=== PATIENT | female | born 1970 | race Caucasian/White ===

== ENCOUNTER 2017-04-14 10:04 | Emergency (ER) | payer MEDICAID ==
[~2017-04-14] VITALS: Ht 157.5 cm; Wt 80.4 kg
[~2017-04-14 10:04] MED LIST: ALPR2TAB1 PO; FERR-13 PO; FOLI5CAP PO; GABA300C PO; OMEP20TC10 PO; VENL75TA17 PO
[2017-04-14 10:10] VITALS: BP 126/69
--- NOTE | 2017-04-14 10:22 | NUR ---
Patient ambulated to bed 3 after providing a urine specimen. RN evaluating patient at bedside.
--- NOTE | 2017-04-14 10:30 | NUR ---
Dr. Harris evaluating patient at bedside.
[2017-04-14] MEDS ORDERED: NACL 0.9% 1,000 ML IV SCH (10:39)
[2017-04-14] MEDS ORDERED: PROMETHAZINE 25 MG/ML VIAL IM ONE (10:40)
[2017-04-14] MEDS ORDERED: KETOROLAC 30 MG/ML VIAL IVP ONE (10:40)
[2017-04-14] MEDS ORDERED: ONDANSETRON 4 MG/2 ML VIAL IVP ONE (10:40)
[2017-04-14 11:12] LABS: BASOPHILS # (AUTO) 0.3 K/uL (0.00-0.22); BASOPHILS % (AUTO) 4.1 % (0.0-2.0); EOSINOPHILS # (AUTO) 0.1 K/uL (0-0.4); EOSINOPHILS % (AUTO) 1.1 % (0.0-4.0); HEMATOCRIT 42.8 % (36-48); HEMOGLOBIN 14.4 g/dL (12.0-16.0); LYMPHOCYTES # (AUTO) 2.6 K/uL (2.5-16.5); LYMPHOCYTES % (AUTO) 35.3 % (20.5-51.1); MEAN CORPUSCULAR HEMOGLOBIN 33 pg (27-31); MEAN CORPUSCULAR HGB CONC 34 g/dL (33-37); MEAN CORPUSCULAR VOLUME 97 fL (80-94); MONOCYTES # (AUTO) 0.6 K/uL (0.8-1.0); MONOCYTES % (AUTO) 8.4 % (1.7-9.3); NEUTROPHILS # (AUTO) 3.7 K/uL (1.8-7.7); NEUTROPHILS % (AUTO) 51.1 % (42.2-75.2); PLATELET COUNT (AUTO) 299 K/uL (140-450); RED BLOOD CELL COUNT(AUTO) 4.39 MIL/uL (4.20-5.40); RED CELL DISTRIBUTION WIDTH 11.9 % (11.6-13.7); WHITE BLOOD COUNT (AUTO) 7.3 K/uL (4.8-10.8)
--- NOTE | 2017-04-14 11:20 | NUR ---
PT TO CT VIA [facility]
--- NOTE | 2017-04-14 11:20 | NUR ---
Patient taken to CT scan via gurney by Sticky.
[2017-04-14 11:33] LABS: BILIRUBIN,URINE 1+ (NEGATIVE); BLOOD, URINE NEGATIVE (NEGATIVE); COLOR,URINE YELLOW (YELLOW); LEUKOCYTE ESTERASE ,URINE NEGATIVE (NEGATIVE); NITRITE, URINE NEGATIVE (NEGATIVE); UGLUCOSE NEGATIVE (NEGATIVE)
[2017-04-14 11:35] LABS: APPEARANCE,URINE SLIGHTLY HAZY (CLEAR)
[2017-04-14 11:37] LABS: CARBON DIOXIDE 26.6 mmol/L (21-32); POTASSIUM 3.6 mmol/L (3.5-5.1)
[2017-04-14 11:38] LABS: TOTAL BILIRUBIN 0.4 mg/dL (0.0-1.0)
[2017-04-14 11:39] LABS: ALBUMIN 3.8 g/dL (3.4-5.0)
--- NOTE | 2017-04-14 11:40 | NUR ---
Patient returned from CT scan. RN re-evaluating patient at bedside.
--- NOTE | 2017-04-14 11:40 | NUR ---
RETURNED FROM CT---RESTING WITH OU CLOSED NO S/S RESP DISTRESS NOTED---NO GRIMACE NO MOAN
[2017-04-14 11:47] LABS: RBC,URINE NONE SEEN /HPF (0-5); WBC,URINE 0-5 (RARE) /HPF (0-5)
--- NOTE | 2017-04-14 11:52 | NUR ---
DENIES PAIN AT THIS TIME
--- NOTE | 2017-04-14 13:13 | NUR ---
Dr. Harris re-evaluating patient at bedside.
[2017-04-14 13:14] VITALS: BP 102/61
== END 2017-04-14 13:14 | disposition home or self-care (01) ==
LOC: MED 10:04
DX: F41.0 Panic disorder [episodic paroxysmal anxiety] (principal); E11.9 Type 2 diabetes mellitus without complications; I10 Essential (primary) hypertension; Z79.899 Other long term (current) drug therapy; Z88.1 Allergy status to other antibiotic agents
CPT/HCPCS: 36415; 70450; 74176; 80053; 81001; 82150; 83690; 84703; 85025; 96361; 96372; 96374; 96375; 99285; J1885; J2405; J2550; J7030

== ENCOUNTER 2017-06-08 09:12 | Emergency (ER) | payer MEDICAID ==
[~2017-06-08] VITALS: Ht 162.6 cm; Wt 80.7 kg
[2017-06-08 09:15] VITALS: BP 122/57
--- NOTE | 2017-06-08 09:22 | NUR ---
PT AMBULATED TO BED 10
--- NOTE | 2017-06-08 09:39 | NUR ---
PATIENT PRESENTS TO ED WITH palpitations/nausea/dizziness/generalized pain . PT STATES . DENIES /V/D; SKIN IS PINK/WARM/DRY; AAOX4 WITH EVEN AND STEADY GAIT; LUNGS CLEAR BL; HR EVEN AND REGULAR; PT DENIES ANY FEVER, , OR COUGH AT THIS TIME; PATIENT STATES PAIN OF 10/10 AT THIS TIME; VSS; PATIENT POSITIONED FOR COMFORT; HOB ELEVATED; BEDRAILS UP X2; BED DOWN. ER MD MADE AWARE OF PT STATUS.
[2017-06-08] MEDS ORDERED: KETOROLAC 60 MG/2 ML VIAL IM ONE (09:50)
[2017-06-08 10:06] VITALS: BP 112/71
== END 2017-06-08 10:06 | disposition home or self-care (01) ==
LOC: MED 09:12
DX: R00.2 Palpitations (principal); M79.1 Myalgia; R42 Dizziness and giddiness; K21.9 Gastro-esophageal reflux disease without esophagitis; I10 Essential (primary) hypertension; F31.9 Bipolar disorder, unspecified; Z88.8 Allergy status to other drugs, medicaments and biological substances
CPT/HCPCS: 81002; 81025; 93005; 96372; 99283; J1885

== ENCOUNTER 2018-04-13 19:38 | Emergency (ER) | payer MEDICAID ==
[~2018-04-13] VITALS: Ht 160 cm; Wt 77.1 kg
[2018-04-13 19:42] VITALS: BP 119/74
--- NOTE | 2018-04-13 19:46 | NUR ---
VISION ACUITY BOTH EYE 20/40, RT EYE 20/100, LEFT EYE 20/ 50
--- NOTE | 2018-04-13 19:50 | NUR ---
TO LOBBY AMBULATORY ,VSS, A/W BED, ERIK NOTED
--- NOTE | 2018-04-13 20:06 | NUR ---
PT AMBULATED TO BED 4
--- NOTE | 2018-04-13 20:10 | NUR ---
47/F CAME IN WITH FAMILY, C/O 10/10 PRESSURE-LIKE OR "PULLING" R EYE PAIN SINCE THE AM. PT REPORTED TAKING TYLENOL AND COVERING EYE WITH NO RELIEF. PT AOX4, GCS 15, PERRLA. PT ANXIOUS, KEEPING EYES CLOSED, RR EVEN AND UNLABORED. LUNG SOUNDS CLEAR BL. BS ACTIVE X4, ABD SOFT ROUND NONTENDER. HX LUPUS, FIBROMYALGIA, HTN, SCIATICA, NEOPLASM
[2018-04-13] MEDS ORDERED: FLUORESCEIN OPTH STRIP 0.6 MG OP ONE (21:00)
[2018-04-13] MEDS ORDERED: TETRACAINE HCL/PF 0.5% OPTH 4 ML BTL OP ONE (21:00)
[2018-04-13] MEDS ORDERED: MORPHINE SULFATE 4 MG/ML SYR IM ONE (21:40)
[2018-04-13] MEDS ORDERED: KETOROLAC 30 MG/ML VIAL IM ONE (22:10)
[2018-04-13 22:57] VITALS: BP 138/87
--- NOTE | 2018-04-13 22:57 | NUR ---
Patient discharged with v/s stable. Written and verbal after care instructions given and explained. Patient alert, oriented and verbalized understanding of instructions. Ambulatory with steady gait. All questions addressed prior to discharge. ID band removed. Patient advised to follow up with PMD. Rx of TOBRAMYCIN, NAPROSYN, NORCO given. Patient educated on indication of medication including possible reaction and side effects. Opportunity to ask questions provided and answered.
== END 2018-04-13 22:57 | disposition home or self-care (01) ==
LOC: MED 19:38
DX: H57.11 Ocular pain, right eye (principal); K21.9 Gastro-esophageal reflux disease without esophagitis; I10 Essential (primary) hypertension; Z88.1 Allergy status to other antibiotic agents; Z79.899 Other long term (current) drug therapy
CPT/HCPCS: 96372; 99283; J1885; J2270

== ENCOUNTER 2018-04-16 12:22 | Emergency (ER) | payer MEDICAID ==
[~2018-04-16] VITALS: Ht 157.5 cm; Wt 74.0 kg
[2018-04-16 13:00] VITALS: BP 131/67
[2018-04-16] MEDS ORDERED: TETRACAINE HCL/PF 0.5% OPTH 4 ML BTL ONE (14:00)
[2018-04-16] MEDS ORDERED: acetaZOLAMIDE 250 MG TAB PO ONE (14:00)
[2018-04-16] MEDS: TIMOLOL OP 0.5% 5 ML BTL OP ONE (14:40)
[2018-04-16] MEDS: acetaZOLAMIDE 250 MG TAB PO SCH (14:41)
[2018-04-16] MEDS: DEXAMETHASONE 4 MG/ML VIAL IVP ONE (14:46)
[2018-04-16] MEDS: MORPHINE SULFATE 4 MG/ML SYR IVP ONE (14:51)
[2018-04-16 15:06] LABS: BASOPHILS % (AUTO) 0.1 % (0.0-2.0); EOSINOPHILS # (AUTO) 0.2 K/uL (0-0.4); EOSINOPHILS % (AUTO) 2.6 % (0.0-4.0); HEMATOCRIT 42.3 % (36-48); HEMOGLOBIN 14.2 g/dL (12.0-16.0); LYMPHOCYTES # (AUTO) 2.3 K/uL (2.5-16.5); LYMPHOCYTES % (AUTO) 24.7 % (20.5-51.1); MEAN CORPUSCULAR HEMOGLOBIN 31 pg (27-31); MEAN CORPUSCULAR HGB CONC 34 g/dL (33-37); MEAN CORPUSCULAR VOLUME 93.6 fL (80-94); MONOCYTES # (AUTO) 0.6 K/uL (0.8-1.0); MONOCYTES % (AUTO) 6.9 % (1.7-9.3); NEUTROPHILS % (AUTO) 65.7 % (42.2-75.2); PLATELET COUNT (AUTO) 432 K/uL (140-450); RED BLOOD CELL COUNT(AUTO) 4.52 MIL/uL (4.20-5.40); RED CELL DISTRIBUTION WIDTH 13.3 % (11.6-13.7); WHITE BLOOD COUNT (AUTO) 9.1 K/uL (4.8-10.8)
[2018-04-16 15:34] LABS: ANION GAP 12.2 (8-16); CARBON DIOXIDE 26.5 mmol/L (21-32); CREATININE 0.8 mg/dL (0.6-1.3); POTASSIUM 3.7 mmol/L (3.5-5.1); TOTAL BILIRUBIN 0.3 mg/dL (0.0-1.0)
[2018-04-16 16:20] LABS: APPEARANCE,URINE CLEAR (CLEAR); BILIRUBIN,URINE NEGATIVE (NEGATIVE); BLOOD, URINE 3+ (NEGATIVE); COLOR,URINE YELLOW (YELLOW); LEUKOCYTE ESTERASE ,URINE TRACE (NEGATIVE); NITRITE, URINE NEGATIVE (NEGATIVE); UGLUCOSE NEGATIVE (NEGATIVE)
[2018-04-16 17:02] VITALS: BP 97/62
[2018-04-16 17:28] LABS: RBC,URINE 3-10 (FEW) /HPF (0-5); WBC,URINE 0-5 (RARE) /HPF (0-5)
== END 2018-04-16 16:58 | disposition short-term general hospital (02) ==
LOC: MED 12:22
DX: H40.211 Acute angle-closure glaucoma, right eye (principal); M32.9 Systemic lupus erythematosus, unspecified; M79.7 Fibromyalgia; M06.9 Rheumatoid arthritis, unspecified; K21.9 Gastro-esophageal reflux disease without esophagitis; I10 Essential (primary) hypertension; Z79.899 Other long term (current) drug therapy
CPT/HCPCS: 36415; 70470; 80053; 81001; 81025; 82150; 83690; 85025; 96374; 96375; 99284; J1100; J2270; Q9967

== ENCOUNTER 2019-01-05 10:42 | Emergency (ER) | payer MEDICAID ==
[~2019-01-05] VITALS: Ht 160 cm; Wt 61.7 kg
[2019-01-05 10:48] VITALS: BP 111/56
--- NOTE | 2019-01-05 11:05 | NUR ---
PATIENT PRESENTS TO ED WITH C/O LOWER BACK PAIN RADIATING TO BILATERAL LOWER LEGS S/P SEEING A CHIROPRACTOR ON 12/24/2018. PT AMBULATED WITH SLOW STEADY GAIT. PMH: SCIATICA, LUPUS, ARTHRITIS, RHEUMATOID ARTHRITIS, FIBROMYALGIA, SYSTEMATIC ANEMIA. PATIENT STATES PAIN OF 10/10 AT THIS TIME; VSS; PATIENT POSITIONED FOR COMFORT; HOB ELEVATED; BEDRAILS UP X2; BED DOWN. ER MD MADE AWARE OF PT STATUS.
--- NOTE | 2019-01-05 11:18 | NUR ---
Patient being evaluated by physician at bedside.
[2019-01-05] MEDS ORDERED: KETOROLAC 30 MG/ML VIAL IM ONE (12:35)
[2019-01-05] MEDS ORDERED: DEXAMETHASONE 4 MG/ML VIAL PO ONE (12:55)
[2019-01-05] MEDS ORDERED: CYCLOBENZAPRINE 10 MG TAB PO ONE (12:55)
--- NOTE | 2019-01-05 13:00 | NUR ---
NO S/S OF DISTRESS, VSS, RESTING IN BED.
--- NOTE | 2019-01-05 14:00 | NUR ---
PT RESTING IN BED, STATED FEELING MUCH BETTER, PAIN 3/10 AT THIS TIME.
--- NOTE | 2019-01-05 14:31 | NUR ---
Patient discharged with v/s stable. Written and verbal after care instructions given and explained. Rx of MEDROL given. Patient educated on indication of medication including possible reaction and side effects. All questions addressed prior to discharge. ID band removed. Patient advised to follow up with PMD.
[2019-01-05 14:32] VITALS: BP 108/56
== END 2019-01-05 14:31 | disposition home or self-care (01) ==
LOC: MED 10:42
DX: M54.41 Lumbago with sciatica, right side (principal); K21.9 Gastro-esophageal reflux disease without esophagitis; I10 Essential (primary) hypertension; Z86.69 Personal history of other diseases of the nervous system and sense organs; Z87.448 Personal history of other diseases of urinary system; Z79.899 Other long term (current) drug therapy; Z88.1 Allergy status to other antibiotic agents
CPT/HCPCS: 81002; 81025; 96372; 99283; J1100; J1885

== ENCOUNTER 2020-07-15 17:54 | Observation (INO) | payer MEDICAID, SELFPAY ==
[~2020-07-15] VITALS: Ht 157.5 cm; Wt 54.4 kg
[2020-07-15 17:56] VITALS: BP 127/31
--- NOTE | 2020-07-15 18:12 | NUR ---
PT TAKEN TO BED 6.
[2020-07-15 18:28] LABS: EOSINOPHILS # (AUTO) 0.2 K/uL (0-0.4); EOSINOPHILS % (AUTO) 2.2 % (0.0-4.0); HEMATOCRIT 23.2 % (36-48); HEMOGLOBIN 7.1 g/dL (12.0-16.0); LYMPHOCYTES # (AUTO) 2.9 K/uL (2.5-16.5); LYMPHOCYTES % (AUTO) 26.6 % (20.5-51.1); MEAN CORPUSCULAR HEMOGLOBIN 21 pg (27-31); MEAN CORPUSCULAR HGB CONC 31 g/dL (33-37); MEAN CORPUSCULAR VOLUME 68.7 fL (80-94); MONOCYTES % (AUTO) 9.1 % (1.7-9.3); NEUTROPHILS # (AUTO) 6.8 K/uL (1.8-7.7); NEUTROPHILS % (AUTO) 62.1 % (42.2-75.2); PLATELET COUNT (AUTO) 480 K/uL (140-450); RED BLOOD CELL COUNT(AUTO) 3.37 MIL/uL (4.20-5.40); WHITE BLOOD COUNT (AUTO) 10.9 K/uL (4.8-10.8)
--- NOTE | 2020-07-15 18:30 | NUR ---
50 YEAR OLD FEMALE STATES THAT SHE IS HERE DUE TO PCP REFERALL FOR LOW HGB OF 6.6 AND NEEDS A BLOOD TRANSFUSION. PT STATES SHE FEELS COLD, FEELS HR FAST. PT DENIES DIZZINESS. PT AOX4, BREATHING EVEN AND UNLABORED, SKIN WARM AND DRY. BED IN LOWEST POSITION, LOCKED, BED RAIL UPX1. PMH - LUPUS, FIBROMYALGIA, RA, PITUITARY TUMOR ALLERGIES - VANCOMYCIN
[2020-07-15 18:37] LABS: ANION GAP 12.9 (8-16); CARBON DIOXIDE 25.9 mmol/L (21-32); CREATININE 0.7 mg/dL (0.6-1.3); POTASSIUM 3.8 mmol/L (3.5-5.1)
[2020-07-15 18:56] LABS: PROTHROMBIN TIME 9.6 secs (10.8-13.4)
--- NOTE | 2020-07-15 19:21 | NUR ---
PT WAS PROVIDED A BLANKET.
--- NOTE | 2020-07-15 19:21 | NUR ---
PT WAS FOUND AWAKE IN SEMI-LICONA'S POSITION IN BED. PT STATES NO DISTRESS AND NO DISCOMFORT. BED LOCKED IN LOWEST POSITION WITH 1 SIDE RAIL UP.
--- NOTE | 2020-07-15 19:21 | NUR ---
RECEIVED TRANSFER OF CARE REPORT FROM PETRONA DOS SANTOS FOR CONTINUATION OF CARE.
--- NOTE | 2020-07-15 19:23 | NUR ---
REPORT GIVEN TO BERNARDO DOS SANTOS, TRANSFER OF CARE AT THIS TIME
--- NOTE | 2020-07-15 19:25 | NUR ---
JB SWAB COLLECCTED AND WALKED TO LAB.
[2020-07-15] MEDS ORDERED: FLUO10CA21 PO (19:46)
[2020-07-15] MEDS ORDERED: TRAZ-343 PO (19:46)
[2020-07-15] MEDS ORDERED: ACETAMINOPHEN 325 MG TAB PO PRN (21:25)
[2020-07-15] MEDS ORDERED: ONDANSETRON 4 MG/2 ML VIAL IVP PRN (21:25)
--- NOTE | 2020-07-15 21:30 | NUR ---
PT FOUND AWAKE IN SEMI-LICONA'S POSITION IN BED. PT STATES NO PAIN. NO DISCOMFORT, AND NO DISTRESS. BED LOCKED IN LOWEST POSITION WITH 1 SIDE RAIL UP.
--- NOTE | 2020-07-15 22:29 | NUR ---
Patient will be admitted to care of DR HOLLEY. Admited to TELEMETRY. Will go to room 106B. Belongings list completed. Report to KEITH DOS SANTOS.
[2020-07-15 22:50] VITALS: BP 141/74
--- NOTE | 2020-07-15 22:52 | NUR ---
PT TRANSFERRED TO ROOM 106B. RECEIVING NURSE KEITH DOS SANTOS AT BEDSIDE.
--- NOTE | 2020-07-15 22:52 | NUR ---
PT ARRIVED FROM ER TO UNIT VIA GURNEY. PT ABLE TO AMBULATE TO BED SAFELY. PT AAOX4, ABLE TO MAKE NEEDS KNOWN. RESPIRATIONS EVEN AND UNLABORED TO ROOM AIR, PT NOT IN DISTRESS. ABDOMEN IS SOFT AND NON-TENDER, ACTIVE BOWEL SOUNDS NOTED. SKIN IS WARM, DRY, AND INTACT. PT WITH IV ACCESS ON LEFT AC G18 PATENT AND INTACT, BLOOD TRANSFUSION ONGOING. PT DENIES ANY PAIN OR DISCOMFORT AT THIS TIME. VITAL SIGNS STABLE. PT WELCOMED AND ORIENTED TO ROOM. MRSA SWAB COLLECTED. PT HOOKED TO TELE MONITORING. POC DISCUSSED, PT VERBALIZED UNDERSTANDING. NO REQUESTS MADE AT THIS TIME. PT KEPT COMFORTABLE. CALL LIGHT WITHIN REACH, WILL CONTINUE TO MONITOR.
[2020-07-15] MEDS: traZODone 50 MG TAB ONE ×2 (23:38→23:58)
[2020-07-15] MEDS ORDERED: IRON SUCROSE COMPLEX 100 MG/5 ML VIAL IVP ONE (23:50)
[2020-07-16] VITALS: BP 125/64
--- NOTE | 2020-07-16 00:10 | NUR ---
1 UNIT PRBC TRANSFUSED. VITAL SIGNS STABLE. NO REACTIONS NOTED. PT DENIES ANY PAIN OR DISCOMFORT AT THIS TIME. WILL CONTINUE TO MONITOR.
--- NOTE | 2020-07-16 01:55 | NUR ---
2ND UNIT OF PRBC STARTED. 2 NURSE VERIFICATION DONE PRIOR. VS STABLE. WILL CONTINUE TO MONITOR.
--- NOTE | 2020-07-16 03:45 | NUR ---
2ND UNIT PRBC TRANSFUSED. VS STABLE. PT DENIES ANY PAIN OR DISCOMFORT. NO REACTIONS NOTED. CBC RESCHEDULED TO 6AM PER PROTOCOL. WILL CONTINUE TO MONITOR.
[2020-07-16 04:00] VITALS: BP 98/68
--- NOTE | 2020-07-16 05:23 | NUR ---
PATIENT ASLEEP. VISIBLE CHEST RISE AND FALL NOTED, NO S/SX OF DISTRESS NOTED. PT KEPT SAFE AND COMFORTABLE. CALL LIGHT WITHIN REACH. WILL CONTINUE TO MONITOR.
[2020-07-16 06:32] LABS: BASOPHILS % (AUTO) 0.1 % (0.0-2.0); EOSINOPHILS # (AUTO) 0.2 K/uL (0-0.4); HEMATOCRIT 27.8 % (36-48); HEMOGLOBIN 8.7 g/dL (12.0-16.0); LYMPHOCYTES # (AUTO) 1.4 K/uL (2.5-16.5); LYMPHOCYTES % (AUTO) 23.5 % (20.5-51.1); MEAN CORPUSCULAR HEMOGLOBIN 23 pg (27-31); MEAN CORPUSCULAR HGB CONC 31 g/dL (33-37); MEAN CORPUSCULAR VOLUME 73.2 fL (80-94); MONOCYTES # (AUTO) 0.7 K/uL (0.8-1.0); MONOCYTES % (AUTO) 10.7 % (1.7-9.3); NEUTROPHILS # (AUTO) 3.8 K/uL (1.8-7.7); NEUTROPHILS % (AUTO) 62.7 % (42.2-75.2); PLATELET COUNT (AUTO) 354 K/uL (140-450); RED BLOOD CELL COUNT(AUTO) 3.79 MIL/uL (4.20-5.40); RED CELL DISTRIBUTION WIDTH 20.9 % (11.6-13.7); WHITE BLOOD COUNT (AUTO) 6.1 K/uL (4.8-10.8)
[2020-07-16 07:05] LABS: ALBUMIN 3.3 g/dL (3.4-5.0); ANION GAP 12.2 (8-16); CARBON DIOXIDE 22.7 mmol/L (21-32); CREATININE 0.6 mg/dL (0.6-1.3); POTASSIUM 3.9 mmol/L (3.5-5.1); TOTAL BILIRUBIN 0.3 mg/dL (0.0-1.0)
--- NOTE | 2020-07-16 07:34 | NUR ---
endorsed to day shift nurse for continuity of care
--- NOTE | 2020-07-16 07:35 | NUR ---
RECEIVED PATIENT FROM NIGHT NURSE. PATIENT IN BED AWAKE AND ALERT. RESP EVEN AND UNLABORED ON ROOM AIR. DENIED OF PAIN AT THIS TIME. LAC 18G SL. SEIZURE PRECAUTION IN PLACE D/T HISTORY. PLAN OF CARE DISCUSSED. PATIENT VERBALIZED UNDERSTANDING. HOB ELEVATED. SAFETY MEASURES IN PLACE. WILL CONTINUE TO MONITOR.
--- NOTE | 2020-07-16 07:49 | NUR ---
PATIENT HAS BEEN SCREENED AND CATEGORIZED LOW NUTRITION RISK. PATIENT WILL BE SEEN WITHIN 7 DAYS OF ADMISSION. 07/22/[address]
[2020-07-16 08:00] VITALS: BP 115/53
--- NOTE | 2020-07-16 08:25 | NUR ---
PATIENT IN BED AWAKE EATING BREAKFAST. MORNING ROUTINE MEDICATIONS GIVEN. RESP EVEN AND UNLABORED ON ROOM AIR. LAC 20G INTACT AND PATENT, SL. PATIENT ABLE TO MAKE NEEDS KNOWN. IN GOOD SPIRIT. CALL LIGHT WITHIN REACH. WILL CONTINUE TO MONITOR.
[2020-07-16] MEDS ORDERED: FLUoxetine 10 MG CAP PO SCH (09:00)
--- NOTE | 2020-07-16 10:45 | NUR ---
TYLENOL GIVEN FOR C/O HEADACHE. FLUIDS ENCOURAGED. PATIENT IN BED AWAKE AND ALERT. DENIED OF SOB AT THIS TIME. CALL LIGHT WITHIN REACH. WILL CONTINUE TO MONITOR.
[2020-07-16 12:00] VITALS: BP 98/50
--- NOTE | 2020-07-16 12:50 | NUR ---
HEADACHE IMPROVED. PATIENT IN BED COMFORTABLE. NO NOTED ACUTE S/S DISTRESS. CALL LIGHT WITHIN REACH. WILL CONTINUE TO MONITOR.
--- NOTE | 2020-07-16 14:25 | NUR ---
DR HOLLEY IN HOUSE PLANNING TO DISCHARGE PATIENT. PATIENT MADE AWARE.
[2020-07-16] MEDS ORDERED: FERR325E14 PO (15:31)
[2020-07-16 15:47] VITALS: BP 98/50
--- NOTE | 2020-07-16 16:06 | NUR ---
PATIENT DISCHARGED HOME. PATIENT LEFT WITH ALL PERSONAL BELONGINGS. DISCHARGE INSTRUCTIONS GIVEN, PATIENT VERBALIZED UNDERSTANDING. PATIENT REF PNA VACC AT THIS TIME. FLU VACC UP TO DATE. Addendum: 07/16/20 at 1607 by Meli Leggett RN PATIENT LEFT IN STABLE CONDITION.
[2020-07-16] MEDS ORDERED: traZODone 50 MG TAB PO SCH (21:00)
== END 2020-07-16 16:05 | disposition home or self-care (01) ==
LOC: MED 17:54 → MTU 21:26
PROVIDERS: ADMIT Hospitalist; ATTEND Hospitalist
DX: D53.9 Nutritional anemia, unspecified (principal); Z20.822 Contact with and (suspected) exposure to COVID-19; D50.9 Iron deficiency anemia, unspecified; F41.9 Anxiety disorder, unspecified; F32.9 Major depressive disorder, single episode, unspecified; M32.9 Systemic lupus erythematosus, unspecified; K21.9 Gastro-esophageal reflux disease without esophagitis; I10 Essential (primary) hypertension; M79.7 Fibromyalgia; M06.9 Rheumatoid arthritis, unspecified; Z79.899 Other long term (current) drug therapy; Z88.1 Allergy status to other antibiotic agents
CPT/HCPCS: 36415; 36430; 71045; 80048; 80053; 83540; 83735; 85025; 85610; 85730; 86886; 86900; 86901; 86920; 87081; 87426; 96374; 99291; G0378; J1756; J7030; P9016; 99284

== ENCOUNTER 2020-09-09 09:54 | Emergency (ER) | payer OTHER, MEDICAID ==
[~2020-09-09] VITALS: Ht 160 cm; Wt 51.7 kg
[~2020-09-09 09:54] MED LIST changes: -ALPR2TAB1 PO; -FERR-13 PO; +FERR325E14 PO; +FLUO10CA21 PO; -FOLI5CAP PO; -GABA300C PO; -OMEP20TC10 PO; +TRAZ-343 PO; -VENL75TA17 PO
[2020-09-09 10:11] VITALS: BP 131/90
--- NOTE | 2020-09-09 10:15 | NUR ---
Pt ambulated to ER bed 11.
--- NOTE | 2020-09-09 10:17 | NUR ---
50 Y/O FEMALE C/O RIGHT WRIST 01/13 DESCRIBES ACHING, UNABLE TO MOVE. PT STATES PAIN RADIATES TO RIGHT SHOULDER. PT DENIES N/V, DENIES FEVER/CHILLS. PMH: LUPUS, ANEMIA, RA, PITUITARY TUMOR (2011) ALLERGIES: VANCOMYCIN
--- NOTE | 2020-09-09 10:29 | NUR ---
Pt taken to XR via W/C.
--- NOTE | 2020-09-09 10:33 | NUR ---
Pt brought back to ER bed 11 via W/C.
--- NOTE | 2020-09-09 10:34 | NUR ---
Dr. Aguilar at pt bedside for further evaluation.
[2020-09-09] MEDS ORDERED: KETOROLAC 30 MG/ML VIAL IM ONE (11:00)
[2020-09-09] MEDS ORDERED: NAPR-1704 PO (11:46)
[2020-09-09] MEDS ORDERED: ACET-8386 PO (11:46)
[2020-09-09 11:53] VITALS: BP 131/90
--- NOTE | 2020-09-09 11:54 | NUR ---
Patient discharged with v/s stable. Written and verbal after care instructions given and explained. Patient alert, oriented and verbalized understanding of instructions. Ambulatory with steady gait. All questions addressed prior to discharge. ID band removed. Patient advised to follow up with PMD. Rx of NAPROXYN 375MG PO BID PRN PAIN, AND HYDROCODONE 5MG-325MG PO Q6-8H PRN SEVERE PAIN given. Patient educated on indication of medication including possible reaction and side effects. Opportunity to ask questions provided and answered.
== END 2020-09-09 11:54 | disposition home or self-care (01) ==
LOC: MED 09:54
DX: S62.114A Nondisplaced fracture of triquetrum [cuneiform] bone, right wrist, initial encounter for closed fracture (principal); K21.9 Gastro-esophageal reflux disease without esophagitis; I10 Essential (primary) hypertension; Z88.1 Allergy status to other antibiotic agents; Z79.899 Other long term (current) drug therapy; Z86.011 Personal history of benign neoplasm of the brain; W19.XXXA Unspecified fall, initial encounter; Y93.89 Activity, other specified; Y92.89 Other specified places as the place of occurrence of the external cause; Y99.8 Other external cause status
CPT/HCPCS: 29125; 73110; 96372; 99283; J1885

== ENCOUNTER 2020-10-20 08:23 | Emergency (ER) | payer MEDICAID, OTHER ==
[~2020-10-20] VITALS: Ht 160 cm; Wt 53.1 kg
[~2020-10-20 08:23] MED LIST changes: +ACET-8386 PO; +NAPR-1704 PO
[2020-10-20 08:25] VITALS: BP 124/78
--- NOTE | 2020-10-20 08:35 | NUR ---
Patient ambulated to bed 10 with a steady gait
--- NOTE | 2020-10-20 08:36 | NUR ---
Patient is a 50 y/o female c/o dry cough, sore throat, body aches, chills that began yesterday after getting her legs wet at work. Patient states she took Tylenol cold yesterday around 1800 and this AM around 0700 with minimal relief. Patient denies chest pain or SOB, headache, blurry vision, n/v/d. Per patient, had a negative covid test two weeks ago. PMH: HTN, Arthritis, lupus Rx: several but cannot recall names Allergies: vancomycin
--- NOTE | 2020-10-20 09:15 | NUR ---
labs (including 2 sets of blood cultures), novel covid specimen, ferny specimen, RSV specimen, influenza A/B specimen collected and taken to the lab.
--- NOTE | 2020-10-20 09:20 | NUR ---
ABD DRAWN ON RIGHT RADIAL AFTER POSITIVE PAKO'N'S TEST, PRESSURE HELD TILL BLEEDING STOPPED AND BANDAGE APPLIED.
--- NOTE | 2020-10-20 09:20 | NUR ---
PATIENT STARTED ON 4L NC POST ABG PER DR ALMANZA.
--- NOTE | 2020-10-20 09:45 | NUR ---
ABG DRAWN FROM RIGHT RADIAL, PRESSURE HELD TILL BLEEDING STOPPED, ABG RESULT TO DR ALMANZA. PATIENT STARTED ON 4L NC PER DR ALMANZA.
[2020-10-20 09:49] LABS: BASOPHILS % (AUTO) 0.1 % (0.0-2.0); EOSINOPHILS # (AUTO) 0.1 K/uL (0-0.4); HEMATOCRIT 31.8 % (36-48); HEMOGLOBIN 10.9 g/dL (12.0-16.0); LYMPHOCYTES # (AUTO) 1.8 K/uL (2.5-16.5); LYMPHOCYTES % (AUTO) 22.4 % (20.5-51.1); MEAN CORPUSCULAR HEMOGLOBIN 30 pg (27-31); MEAN CORPUSCULAR HGB CONC 34 g/dL (33-37); MEAN CORPUSCULAR VOLUME 88.3 fL (80-94); MONOCYTES # (AUTO) 0.7 K/uL (0.8-1.0); MONOCYTES % (AUTO) 8.1 % (1.7-9.3); NEUTROPHILS # (AUTO) 5.6 K/uL (1.8-7.7); NEUTROPHILS % (AUTO) 68.4 % (42.2-75.2); PLATELET COUNT (AUTO) 328 K/uL (140-450); RED CELL DISTRIBUTION WIDTH 13.8 % (11.6-13.7); WHITE BLOOD COUNT (AUTO) 8.1 K/uL (4.8-10.8)
--- NOTE | 2020-10-20 09:55 | NUR ---
Patient ambulated to the restroom with a steady gait. Patient collected a urine specimen.
[2020-10-20 10:15] LABS: PROTHROMBIN TIME 9.5 secs (10.8-13.4)
[2020-10-20 10:16] LABS: LACTATE DEHYDROGENASE 199 U/L (81-234)
[2020-10-20 10:17] LABS: ALBUMIN 3.8 g/dL (3.4-5.0); ANION GAP 11.5 (8-16); CARBON DIOXIDE 27.2 mmol/L (21-32); CREATININE 0.6 mg/dL (0.6-1.3); POTASSIUM 4.7 mmol/L (3.5-5.1); TOTAL BILIRUBIN 0.3 mg/dL (0.0-1.0)
[2020-10-20 10:40] LABS: C-REACTIVE PROTEIN QUANT < 0.2 mg/dL (0.0-0.9)
--- NOTE | 2020-10-20 10:45 | NUR ---
Patient requesting to speak to her son but does not have a cell phone, patient provided with hospital telephone. Patient resting comfortably in bed, VSS, bed at the lowest position, side rail up, and call light within reach.
[2020-10-20 11:29] LABS: RSV NEGATIVE (NEGATIVE)
[2020-10-20 12:02] VITALS: BP 119/63
--- NOTE | 2020-10-20 12:02 | NUR ---
Patient discharged with v/s stable. Written and verbal after care instructions given and explained. Patient verbalized understanding. Ambulatory with steady gait. All questions addressed prior to discharge. Patient leaving Against Medical Advice (AMA); patient signed the form and was given a copy. Advised to follow up with PMD.
[2020-10-20 13:56] LABS: APPEARANCE,URINE CLEAR (CLEAR); BILIRUBIN,URINE NEGATIVE (NEGATIVE); COLOR,URINE YELLOW (YELLOW); LEUKOCYTE ESTERASE ,URINE 1+ (NEGATIVE); NITRITE, URINE NEGATIVE (NEGATIVE); PH,URINE 7.5 (5.0-9.0); UGLUCOSE NEGATIVE (NEGATIVE)
[2020-10-20 14:03] LABS: RBC,URINE 0-5 /HPF (0-5); WBC,URINE 0-5 /HPF (0-5)
[2020-10-20 14:04] LABS: BLOOD, URINE 1+ (NEGATIVE)
== END 2020-10-20 12:02 | disposition left against medical advice (07) ==
LOC: MED 08:23
DX: B34.9 Viral infection, unspecified (principal); R09.02 Hypoxemia; M06.9 Rheumatoid arthritis, unspecified; M32.9 Systemic lupus erythematosus, unspecified; K21.9 Gastro-esophageal reflux disease without esophagitis; I10 Essential (primary) hypertension; Z88.1 Allergy status to other antibiotic agents; Z20.822 Contact with and (suspected) exposure to COVID-19
CPT/HCPCS: 36415; 71045; 80053; 81001; 81025; 82550; 82728; 83605; 83615; 83880; 84484; 85025; 85379; 85384; 85610; 85730; 86140; 87040; 87086; 87420; 87426; 87804; 93005; 99285; U0003

== ENCOUNTER 2020-12-10 13:30 | Emergency (ER) | payer MEDICAID, SELFPAY ==
[~2020-12-10] VITALS: Ht 160 cm; Wt 52.6 kg
[~2020-12-10 13:30] MED LIST changes: -ACET-8386 PO; -NAPR-1704 PO
[2020-12-10 13:49] VITALS: BP 150/82
--- NOTE | 2020-12-10 14:33 | NUR ---
PT TAKEN TO XR VIA W/C.
--- NOTE | 2020-12-10 14:49 | NUR ---
PT TAKEN TO [facility] A VIA W/C.
--- NOTE | 2020-12-10 14:50 | NUR ---
FURNITURE RENTAL CONSULTANT WITH PT IN A.
--- NOTE | 2020-12-10 15:00 | NUR ---
BIB FAMILY C/O GENERALIZED WEAKNESS, DIZZINESS X YESTERDAY. PMH: LUPUS, RA, PITUITARY TUMOR, GERD
[2020-12-10 15:10] LABS: BASOPHILS % (AUTO) 0.1 % (0.0-2.0); EOSINOPHILS # (AUTO) 0.2 K/uL (0-0.4); EOSINOPHILS % (AUTO) 1.5 % (0.0-4.0); HEMATOCRIT 32.2 % (36-48); HEMOGLOBIN 10.1 g/dL (12.0-16.0); LYMPHOCYTES # (AUTO) 2.1 K/uL (2.5-16.5); LYMPHOCYTES % (AUTO) 19.4 % (20.5-51.1); MEAN CORPUSCULAR HEMOGLOBIN 25 pg (27-31); MEAN CORPUSCULAR HGB CONC 32 g/dL (33-37); MEAN CORPUSCULAR VOLUME 78.7 fL (80-94); MONOCYTES # (AUTO) 0.8 K/uL (0.8-1.0); MONOCYTES % (AUTO) 7.8 % (1.7-9.3); NEUTROPHILS # (AUTO) 7.7 K/uL (1.8-7.7); NEUTROPHILS % (AUTO) 71.2 % (42.2-75.2); PLATELET COUNT (AUTO) 540 K/uL (140-450); RED BLOOD CELL COUNT(AUTO) 4.09 MIL/uL (4.20-5.40); RED CELL DISTRIBUTION WIDTH 18.4 % (11.6-13.7); WHITE BLOOD COUNT (AUTO) 10.8 K/uL (4.8-10.8)
[2020-12-10 15:54] LABS: ALBUMIN 3.9 g/dL (3.4-5.0); ANION GAP 13.2 (8-16); CREATININE 0.7 mg/dL (0.6-1.3); POTASSIUM 4.2 mmol/L (3.5-5.1); TOTAL BILIRUBIN 0.2 mg/dL (0.0-1.0)
[2020-12-10 16:00] LABS: PROTHROMBIN TIME 9.6 secs (10.8-13.4)
[2020-12-10 16:48] LABS: APPEARANCE,URINE SL CLOUDY (CLEAR); BILIRUBIN,URINE NEGATIVE (NEGATIVE); BLOOD, URINE 3+ (NEGATIVE); COLOR,URINE YELLOW (YELLOW); LEUKOCYTE ESTERASE ,URINE TRACE (NEGATIVE); NITRITE, URINE NEGATIVE (NEGATIVE); PH,URINE 7.5 (5.0-9.0); UGLUCOSE NEGATIVE (NEGATIVE)
[2020-12-10 17:13] LABS: RBC,URINE 11-20 (MOD) /HPF (0-5); WBC,URINE 0-5 /HPF (0-5)
[2020-12-10 17:35] VITALS: BP 142/84
--- NOTE | 2020-12-10 17:36 | NUR ---
Patient discharged with v/s stable. Written and verbal after care instructions given and explained. Patient verbalized understanding. Ambulatory with steady gait. All questions addressed prior to discharge. Advised to follow up with PMD.
== END 2020-12-10 17:36 | disposition home or self-care (01) ==
LOC: MED 13:30
DX: R53.83 Other fatigue (principal); D64.9 Anemia, unspecified
CPT/HCPCS: 36415; 71045; 80053; 81001; 85025; 85610; 85730; 86886; 86900; 86901; 99284

== ENCOUNTER 2022-12-24 15:04 | Emergency (ER) | payer MEDICAID ==
[~2022-12-24] VITALS: Ht 152.4 cm; Wt 49.9 kg
[2022-12-24 15:26] VITALS: BP 159/93; PULSE 78; RESP 17; TEMP 97.4; O2SAT 98
[2022-12-24 17:26] LABS: BASOPHILS % (AUTO) 0.1 % (0.0-2.0); EOSINOPHILS % (AUTO) 0.2 % (0.0-4.0); HEMATOCRIT 39.2 % (36-48); HEMOGLOBIN 13.2 g/dL (12.0-16.0); LYMPHOCYTES # (AUTO) 0.9 K/uL (2.5-16.5); LYMPHOCYTES % (AUTO) 12.2 % (20.5-51.1); MEAN CORPUSCULAR HEMOGLOBIN 30 pg (27-31); MEAN CORPUSCULAR HGB CONC 34 g/dL (33-37); MEAN CORPUSCULAR VOLUME 87.7 fL (80-94); MONOCYTES # (AUTO) 0.8 K/uL (0.8-1.0); MONOCYTES % (AUTO) 10.5 % (1.7-9.3); NEUTROPHILS # (AUTO) 5.6 K/uL (1.8-7.7); PLATELET COUNT (AUTO) 307 K/uL (140-450); RED BLOOD CELL COUNT(AUTO) 4.47 MIL/uL (4.20-5.40); RED CELL DISTRIBUTION WIDTH 12.4 % (11.6-13.7); WHITE BLOOD COUNT (AUTO) 7.3 K/uL (4.8-10.8)
[2022-12-24 17:36] LABS: ANION GAP 10.9 (8-16); CALCIUM 9.8 mg/dL (8.5-10.1); CARBON DIOXIDE 30.3 mmol/L (21-32); CREATININE 0.9 mg/dL (0.6-1.3); POTASSIUM 4.2 mmol/L (3.5-5.1)
[2022-12-24] MEDS ORDERED: MORPHINE SULFATE 4 MG/ML SYR IM ONE (17:45)
[2022-12-24] MEDS ORDERED: ACET-8905 PO (17:51)
[2022-12-24] MEDS ORDERED: IBUP-2213 PO (17:51)
[2022-12-24 18:41] VITALS: BP 140/88; PULSE 78; RESP 17; TEMP 98; O2SAT 99
== END 2022-12-24 18:41 | disposition home or self-care (01) ==
LOC: MED 15:04
DX: M54.50 Low back pain, unspecified (principal); R55 Syncope and collapse; K21.9 Gastro-esophageal reflux disease without esophagitis; I10 Essential (primary) hypertension; Z85.841 Personal history of malignant neoplasm of brain; Z79.899 Other long term (current) drug therapy; Z88.8 Allergy status to other drugs, medicaments and biological substances
CPT/HCPCS: 36415; 72100; 80048; 85025; 93005; 96372; 99285; J2270

== ENCOUNTER 2023-06-10 10:21 | Emergency (ER) | payer MEDICAID, OTHER ==
[~2023-06-10] VITALS: Ht 162.6 cm; Wt 57.6 kg
[~2023-06-10 10:21] MED LIST changes: +ACET-8905 PO; +IBUP-2213 PO
[2023-06-10 10:33] VITALS: BP 155/83; PULSE 103; RESP 19; TEMP 97.7; O2SAT 100
[2023-06-10] MEDS ORDERED: NACL 0.9% 1,000 ML IV ONE (11:30)
[2023-06-10] MEDS ORDERED: KETOROLAC 30 MG/ML VIAL IM ONE (11:30)
[2023-06-10] MEDS ORDERED: ACETAMINOPHEN EXTRA STRENGTH 500 MG TAB PO ONE (11:30)
[2023-06-10] MEDS ORDERED: ONDANSETRON 4 MG/2 ML VIAL IVP ONE (11:35)
[2023-06-10 11:48] LABS: EOSINOPHILS % (AUTO) 0.2 % (0.0-4.0); HEMOGLOBIN 13.4 g/dL (12.0-16.0); LYMPHOCYTES # (AUTO) 0.8 K/uL (2.5-16.5); LYMPHOCYTES % (AUTO) 9.5 % (20.5-51.1); MEAN CORPUSCULAR HEMOGLOBIN 31 pg (27-31); MEAN CORPUSCULAR HGB CONC 34 g/dL (33-37); MEAN CORPUSCULAR VOLUME 90.7 fL (80-94); MONOCYTES # (AUTO) 0.7 K/uL (0.8-1.0); MONOCYTES % (AUTO) 7.4 % (1.7-9.3); NEUTROPHILS # (AUTO) 7.4 K/uL (1.8-7.7); NEUTROPHILS % (AUTO) 82.9 % (42.2-75.2); PLATELET COUNT (AUTO) 294 K/uL (140-450); RED CELL DISTRIBUTION WIDTH 14.1 % (11.6-13.7); WHITE BLOOD COUNT (AUTO) 8.9 K/uL (4.8-10.8)
[2023-06-10 12:02] LABS: ANION GAP 15.5 (8-16); CALCIUM 9.5 mg/dL (8.5-10.1); CARBON DIOXIDE 24.6 mmol/L (21-32); CREATININE 0.8 mg/dL (0.6-1.3); POTASSIUM 4.1 mmol/L (3.5-5.1)
[2023-06-10 12:05] LABS: ALBUMIN 3.8 g/dL (3.4-5.0); BILIRUBIN,DIRECT 0.1 mg/dL (0.0-0.3); TOTAL BILIRUBIN 0.2 mg/dL (0.0-1.0); TOTAL PROTEIN, SERUM 7.7 g/dL (6.4-8.2)
[2023-06-10 12:08] LABS: FLU A ANTIGEN NEGATIVE (NEGATIVE); FLU B ANTIGEN NEGATIVE (NEGATIVE)
[2023-06-10 12:26] LABS: INR 0.96 (0.8-1.2); PARTIAL THROMBOPLASTIN TIME 26.1 secs (22-35.6); PROTHROMBIN TIME 10.1 secs (10.8-13.4)
[2023-06-10] MEDS ORDERED: ONDA-188 PO (13:13)
[2023-06-10 13:39] VITALS: BP 125/65; PULSE 82; RESP 16; O2SAT 100
== END 2023-06-10 13:19 | disposition home or self-care (01) ==
LOC: MED 10:21
DX: U07.1 COVID-19 (principal); R07.9 Chest pain, unspecified; R00.0 Tachycardia, unspecified; K21.9 Gastro-esophageal reflux disease without esophagitis; I10 Essential (primary) hypertension; M19.90 Unspecified osteoarthritis, unspecified site; Z87.448 Personal history of other diseases of urinary system; Z79.899 Other long term (current) drug therapy; Z79.1 Long term (current) use of non-steroidal anti-inflammatories (NSAID); Z88.1 Allergy status to other antibiotic agents
CPT/HCPCS: 36415; 71045; 80048; 80076; 81025; 83690; 83880; 84484; 85025; 85610; 85730; 87426; 87804; 93005; 96361; 96372; 96374; 99285; J1885; J2405; J7030